=== PATIENT | female | born 1965 | race Caucasian/White ===

== ENCOUNTER 2017-06-10 02:05 | Inpatient (IN) | payer MEDICAID ==
[~2017-06-10] VITALS: Ht 157.5 cm; Wt 72.8 kg
[~2017-06-10 02:05] MED LIST: ACETAMINOPHEN 325 MG TAB PO PRN; ACETAMINOPHEN/HYDROcodone 325 MG/5 MG TAB PO PRN; HEPARIN-D5W 25,000 U/250 ML 250 ML IV PRN; LEVO75TA3 PO; NALOXONE HCL 0.4 MG/ML AMP IV PUSH PRN; SODIUM CHLORIDE 0.9% FLUSH 10 ML FLUSH IV FLUSH PRN
[2017-06-10 02:48] VITALS: BP 108/68; PULSE 71; RESP 17; TEMP 96.1; O2SAT 98
[2017-06-10 03:00] VITALS: PULSE 72
[2017-06-10] MEDS ORDERED: HEPARIN 25,000 UNITS-D5W 250 ML - PREMIX IV PRN (04:30)
[2017-06-10] MEDS ORDERED: LEVOTHYROXINE SODIUM 75 MCG TAB PO SCH (07:00)
[2017-06-10 08:00] VITALS: BP 109/56; PULSE 83; RESP 18; TEMP 98.1; O2SAT 97
[2017-06-10 08:15] VITALS: PULSE 89
--- NOTE | 2017-06-10 08:36 | HHI.HP ---
[facility] Service [facility] Hospitalists Primary Care Physician No Primary Care Physician Admission Diagnosis Diagnoses: Chief Complaint: Right-sided back pain, shortness of breath for 3 days. Travel History International Travel<30 Days: Yes Contact w/Intl Traveler <30 Da: Yes Name of Country Traveled to: [place], [place] Traveled to Known Affected Are: Yes History of Present Illness Ms. Harmon is a pleasant 51-year-old female with a history of hypothyroidism and chronic anemia who presents to the emergency department on 06/09/2017 due to right-sided back pain and shortness of breath that started 2-3 days ago. Patient is originally from [place]. She went to [facility] for a tummy tuck and liposuction surgery about a month ago. Following surgery she was discharged with 7 days of anticoagulation. She stayed in [place] for some time before she returned to the [facility]. Approximately 3 days ago she started having right-sided back pain, pleuritic chest pain on deep breathing, shortness of breath. She did not have cough, fever or chills. Her d-dimer was elevated to 1.79. Subsequently a CT PE study was done and shows right-sided segmental artery pulmonary embolism. She also had what appears to be atelectasis on the right costophrenic angle. Patient did not have any leukocytosis, fever or cough. She was transferred to [facility] and started on heparin drip. Of note, patient does not take any control medications. Review of Systems Except as stated in HPI: all other systems reviewed are Neg Past Family Social History Past Medical History Hypothyroidism, chronic anemia. Past Surgical History Recent surgery tummy tuck and liposuction on 05/12/2017 Reported Medications Levothyroxine 75 mcg daily. Allergies: Coded Allergies: No Known Allergies (Unverified , 06/09/17) Family History No family history of heart disease, cancer. Mother has history of some kind of blood clotting. Social History Patient denies using tobacco or illicit drugs. She drinks occasionally. Physical Exam Vital Signs Vital Signs Date Time Temp Pulse Resp B/P (MAP) Pulse Ox O2 Delivery O2 Flow Rate FiO2 06/10/17 03:00 72 06/10/17 02:48 96.1 71 17 108/68 (07) 38 Physical Exam GENERAL: This is a well-nourished, well-developed patient, in no apparent distress. SKIN: No rashes, ecchymoses or lesions. Warm and dry. HEAD: Atraumatic. Normocephalic. No temporal or scalp tenderness. EYES: Pupils equal round and reactive. No injection or drainage. ENT: Nose without bleeding, purulent drainage or septal hematoma. Airway patent. NECK: Trachea midline. No lymphadenopathy. Supple, nontender, no meningeal signs. CARDIOVASCULAR: Regular rate and rhythm without murmurs, gallops, or rubs. No JVD. RESPIRATORY: Clear to auscultation. Breath sounds equal bilaterally. No wheezes , rales, or rhonchi. GASTROINTESTINAL: Abdomen soft, non-tender, nondistended. No guarding. MUSCULOSKELETAL: Extremities without clubbing, cyanosis, or edema. NEUROLOGICAL: Awake and alert. Cranial nerves II through XII intact. No focal neurological deficits. Normal speech. Laboratory Laboratory Tests Test 06/10/17 03:00 Activated Partial Thromboplast Time 72.0 Imaging 06/09/2017 Chest x-ray shows mild right basilar atelectasis. CT PE study : Positive for pulmonary embolism in 1 segmental artery supplying the right lower lobe medial basal segment. Consolidation air bronchograms the right costophrenic angle. Large hiatus hernia. Caprini VTE Risk Assessment Caprini VTE Risk Assessment: Mod/High Risk (score >= 2) Caprini Risk Assessment Model Point Value = 1 Point Value = 2 Point Value = 3 Point Value = 5 Age 41-60 Minor surgery BMI > 25 kg/m2 Swollen legs Varicose veins or History of unexplained or recurrent spontaneous Oral contraceptives or hormone replacement Sepsis (< 1 month) Serious lung disease, including pneumonia (< 1 month) Abnormal pulmonary function Acute myocardial infarction Congestive heart failure (< 1 month) History of inflammatory bowel disease Medical patient at bed rest Age 61-74 Arthroscopic surgery Major open surgery (> 45 min) Laparoscopic surgery (> 45 min) Malignancy Confined to bed (> 72 hours) Immobilizing plaster cast Central venous access Age >= 75 History of VTE Family history of VTE Factor V Leiden Prothrombin [id number] Lupus anticoagulant Anticardiolipin antibodies Elevated serum homocysteine Heparin-induced thrombocytopenia Other congenital or acquired thrombophilia Stroke (< 1 month) Elective arthroplasty Hip, pelvis, or leg fracture Acute spinal cord injury (< 1 month) Prophylaxis Regimen Total Risk Factor Score Risk Level Prophylaxis Regimen 0-1 Low Early ambulation 2 Moderate Order ONE of the following: *Sequential Compression Device (SCD) *Heparin 5000 units SQ BID 3-4 Higher Order ONE of the following medications: *Heparin 5000 units SQ TID *Enoxaparin/Lovenox 40 mg SQ daily (WT < 150 kg, CrCl > 30 mL/min) *Enoxaparin/Lovenox 30 mg SQ daily (WT < 150 kg, CrCl > 10-29 mL/min) *Enoxaparin/Lovenox 30 mg SQ BID (WT < 150 kg, CrCl > 30 mL/min) AND/OR *Sequential Compression Device (SCD) 5 or more Highest Order ONE of the following medications: *Heparin 5000 units SQ TID (Preferred with Epidurals) *Enoxaparin/Lovenox 40 mg SQ daily (WT < 150 kg, CrCl > 30 mL/min) *Enoxaparin/Lovenox 30 mg SQ daily (WT < 150 kg, CrCl > 10-29 mL/min) *Enoxaparin/Lovenox 30 mg SQ BID (WT < 150 kg, CrCl > 30 mL/min) AND *Sequential Compression Device (SCD) Assessment and Plan Problem List: (1) Pulmonary embolism ICD Code: I26.99 - Other pulmonary embolism without acute cor pulmonale (2) Chronic anemia ICD Code: D64.9 - Anemia, unspecified (3) Hypothyroidism ICD Code: E03.9 - Hypothyroidism, unspecified Assessment and Plan Ms. Harmon is a pleasant 51-year-old female who presented to the emergency department on 06/09/2017 due to shortness of breath and right posterior back pain. Patient recently had tummy tuck and liposuction in [place] on 05/12/2017. Following surgery she spent sometime in [place] before returning to the [facility]. 3 days prior to this admission. Patient started having shortness of breath and right back pain. CT PE study shows right-sided pulmonary embolism. -Pulmonary embolism, right-sided segmental - Pulmonary embolism severity index score 0 (low risk). - Patient was given first dose of Apixaban. Patient tolerated well. - And is currently on room air. Tolerating diet well. - Despite PE, she is clinically doing well. Hemodynamically stable. We will discharge patient home. - Patient is instructed to follow-up with her primary care physician. She would require 3 months of anticoagulation. -If she does not have any additional risk factors, she should not require any additional anticoagulants and after 3 months. -Chronic anemia -hemoglobin slightly above 10. Continue to take iron supplements. -Hypothyroidism -continue levothyroxine 75 mcg daily. Full code. Apixaban. Discharge patient to home Condition on discharge: Improved Regular Diet as tolerated Ad Ida activity Rx written: Apixaban 5 mg tablets. Take 2 tablets twice a day for 7 days. On 06/17/2017, start taking 1 tablet twice daily for 3 months. Tramadol 50 mg every 8 hours as needed for pain. Follow-up with primary care physician within 1 week. Physician Certification 2 Midnight Certification Type: Admission for Inpatient Services Order for Inpatient Services The services are ordered in accordance with Medicare regulations or non- Medicare payer requirements, as applicable. In the case of services not specified as inpatient-only, they are appropriately provided as inpatient services in accordance with the 2-midnight benchmark. Estimated LOS (days): 2 days is the estimated time the patient will need to remain in the hospital, assuming treatment plan goals are met and no additional complications. Post-Hospital Plan: Denice Eric DO Jun 10, 2017 08:36
[2017-06-10] MEDS ORDERED: traMADol HCL 50 MG TAB PO PRN (08:45)
[2017-06-10] MEDS ORDERED: APIXABAN 5 MG TABLET PO SCH (09:00)
[2017-06-10] MEDS ORDERED: SODIUM CHLORIDE 0.9% FLUSH 10 ML FLUSH IV FLUSH SCH (09:00)
[2017-06-10 09:22] LABS: AUTOMATED NEUTROPHIL # 3.6 TH/MM3 (1.8-7.7); BASOPHIL % 0.6 % (0.0-2.0); EOSINOPHIL # 0.1 TH/MM3 (0-0.4); EOSINOPHIL % 2.2 % (0.0-4.0); HEMATOCRIT 31.9 % (35.0-46.0); HEMOGLOBIN 10.9 GM/DL (11.6-15.3); LYMPH % 23.7 % (9.0-44.0); LYMPHOCYTE # 1.2 TH/MM3 (1.0-4.8); MEAN CELL VOLUME 86.8 FL (80.0-100.0); MEAN CORPUSCULAR HEMOGLOBIN 29.6 PG (27.0-34.0); MEAN CORPUSCULAR HGB CONC 34.1 % (32.0-36.0); MEAN PLATELET VOLUME 7.6 FL (7.0-11.0); MONOCYTE # 0.3 TH/MM3 (0-0.9); NEUT % 67.5 % (16.0-70.0); PLATELET COUNT 277 TH/MM3 (150-450); RED BLOOD COUNT 3.68 MIL/MM3 (4.00-5.30); WHITE BLOOD COUNT 5.2 TH/MM3 (4.0-11.0)
[2017-06-10 09:32] VITALS: O2SAT 98
[2017-06-10 10:02] LABS: CALCIUM 8.5 MG/DL (8.5-10.1)
[2017-06-10 10:03] LABS: BICARBONATE 23.4 MEQ/L (21.0-32.0)
[2017-06-10 10:06] LABS: CREATININE 0.63 MG/DL (0.50-1.00)
[2017-06-10] MEDS ORDERED: TRAM50 PO (10:14)
[2017-06-10] MEDS ORDERED: APIX5TAB PO (10:14)
[2017-06-10 12:00] VITALS: BP 104/67; PULSE 75; RESP 18; TEMP 97.5; O2SAT 99
== END 2017-06-10 15:11 | disposition home or self-care (01) | DRG 176 ==
LOC: PHEDDLT 02:05 → PH3B 02:15
PROVIDERS: ADMIT Hospitalist; ATTEND Hospitalist
DX: I26.99 Other pulmonary embolism without acute cor pulmonale (principal); E03.9 Hypothyroidism, unspecified; D64.9 Anemia, unspecified; Z98.890 Other specified postprocedural states
CPT/HCPCS: 71046; 71275; 80048; 80053; 82272; 85025; 85379; 85610; 85730; 93005; 94150; 96374; 96375; J1644; Q9967